=== PATIENT | female | born 1955 | race Caucasian/White ===

== ENCOUNTER → 2016-10-08 | Outpatient (CLI) | payer BC ==
[~2016-10-08] MED LIST: ATARAX25 MG PO; KEFLEX500 MG PO; LISINOPRIL-HCTZ 20-1; PREDNICOT20 MG PO
== END | disposition home or self-care (01) ==
LOC: MAMMO 09-24 09:00
DX: N63 Unspecified lump in breast (principal); R92.8 Other abnormal and inconclusive findings on diagnostic imaging of breast

== ENCOUNTER → 2017-09-22 | Outpatient (CLI) | payer BC | END | disposition home or self-care (01) | LOC: MAMMO 09-14 09:00 | DX: Z12.31 Encounter for screening mammogram for malignant neoplasm of breast (principal); N63.20 Unspecified lump in the left breast, unspecified quadrant; R92.8 Other abnormal and inconclusive findings on diagnostic imaging of breast ==

== ENCOUNTER 2020-07-02 16:14 | Inpatient (IN) | payer MEDICAID ==
[~2020-07-02] VITALS: Ht 160 cm; Wt 59.0 kg
[2020-07-02 17:19] LABS: BASO # 0.1 10*3/uL (0.0-0.1); BASO % 0.7 % (0.0-1.0); EOS # 0.2 10*3/uL (0.0-0.4); EOS % 1.6 % (1.0-4.0); HEMATOCRIT 42.8 % (37.0-47.0); LYMPH # 0.9 10*3/uL (1.3-4.4); LYMPH % 9.2 % (27.0-41.0); MEAN CELL VOLUME 97.1 fl (81.0-99.0); MEAN CORPUSCULAR HGB 31.5 pg (27.0-31.0); MEAN CORPUSCULAR HGB CONC 32.5 g/dl (33.0-37.0); MEAN PLATELET VOLUME 8.7 fl (9.6-12.3); MONO # 0.6 10*3/uL (0.1-1.0); MONO % 6.6 % (3.0-9.0); NEUT # 7.5 10*3/uL (2.3-7.9); NEUT % 81.1 % (47.0-73.0); PLATELET COUNT AUTOMATED 184 10*3/uL (130-400); RED BLOOD COUNT 4.41 10*6/uL (4.10-5.10); RED CELL DISTRI WIDTH 12.2 % (0-14.5); WHITE BLOOD COUNT 9.2 10*3/uL (4.8-10.8)
--- NOTE | 2020-07-02 17:21 | NUR ---
PATIENT MEDICATED FOR PAIN PER EMAR AND PODIATRY REQUEST. PIV INITIATED AND MEDICATED WITH 2 MG OF DILAUDID. CONT PULSE OX IN PLACE. SIDE RAILS UP X2..
[2020-07-02 17:33] LABS: ACT PARTIAL THROMBO TIME 26.5 SECONDS (20.0-32.1); INTERNATIONAL NORM RATIO 1.1 (2.0-3.5)
[2020-07-02 17:34] LABS: ALBUMIN 3.4 gm/dl (3.1-4.5); ALKALINE PHOSPHATASE 84 U/L (45-117); BUN 8 mg/dl (7-24); CHLORIDE 107 mmol/L (98-107); CREATININE 0.63 mg/dL (0.55-1.02); LIPASE 129 U/L (73-393); POTASSIUM 3.9 mmol/L (3.5-5.1); SGOT/AST 34 IU/L (3-35); SGPT/ALT 18 U/L (12-78); SODIUM 137 mmol/L (136-145); TOTAL PROTEIN 7.4 gm/dL (6.4-8.2)
--- NOTE | 2020-07-02 18:12 | NUR ---
PATIENT TO CT
--- NOTE | 2020-07-02 19:24 | NUR ---
8 MG ETOMIDATE GIVEN IV BY MARY ARREOLA
--- NOTE | 2020-07-02 19:25 | NUR ---
MEDICATION EFFECTIVE. FX REDUCED AT BEDSIDE. POX 99% ON 15 L NRB
--- NOTE | 2020-07-02 19:26 | NUR ---
FRACTURE STABLIZED WITH SPLINT
--- NOTE | 2020-07-02 19:27 | NUR ---
VITALS; POX 100% NRB 15L, HR 81 NSR, B/P 175/95, PATIENT STILL ADEQUATLY SEDATED AND RESTING IN BED. IV FLUIDS 125ML/HR
--- NOTE | 2020-07-02 19:30 | NUR ---
PATIENT EASILY AROUSED BY VOICE AT THIS TIME. ALERT AND ORIENTED TO X 3. GOOD SKIN RESPONSE WITH ADEQUATE COLOR CHANGE AFTER SPLINT APPLIED.
--- NOTE | 2020-07-02 19:45 | NUR ---
VITALS HR 82 B/P 163/76. IV FLUIDS RUNNING WITHOUT INCIDENT. PATIENT EASILY AROUSED BY VERBAL COMMU NICATION.
[2020-07-02 19:47] VITALS: BP 163/76
--- NOTE | 2020-07-02 19:51 | NUR ---
REPORT GIVEN TO CLARISSA ARREOLA.
[2020-07-02 19:55] VITALS: BP 143/81
[2020-07-02 20:24] VITALS: BP 147/78
--- NOTE | 2020-07-02 20:25 | NUR ---
PATIENT AWAKE AND RESTING IN BED. NO COMPLAINTS AT THIS TIME. ALERT AND ORIENTED TIMES 3
[2020-07-02 20:52] VITALS: BP 1565/73
[2020-07-02 21:20] VITALS: BP 152/81
--- NOTE | 2020-07-02 21:20 | NUR ---
LEFT FOOT NOT VISUALIZED TO ASSESS SKIN D/T SPLINT IN PLACE FROM THE ER.
--- NOTE | 2020-07-02 21:20 | NUR ---
PATIENT STATES SHE HAS NOT HAD THE FLU SHOT BUT DOES NOT WANT IT.
--- NOTE | 2020-07-02 21:20 | NUR ---
PATIENT UNSURE OF WHAT MEDS SHE TAKES SHE STATES "I KNOW I TAKE SOME BLOOD PRESSURE MEDS BUT I'M NOT SURE THE NAMES. THERES A COUPLE." WHEN LOOKING AT HER MED CLAIM HISTORY IT DOESN'T LOOK LIKE PATIENT HAS PICKED ANY MEDS UP RECENTLY. WHEN I ASKED PATIENT ABOUT THIS SHE STATES "WELL I HAVE BEEN USING THEM I WANT BECAUSE OF MY INSURANCE SO I HAVE BEEN SPACING THEM OUT AND MAKING THEM LAST." WILL CHECK WITH PHARMACY TOMORROW TO GET A MED LIST.
--- NOTE | 2020-07-02 21:20 | NUR ---
PATIENT STATES UNDERSTANDING OF NPO AFTER MIDNIGHT.
--- NOTE | 2020-07-02 21:20 | NUR ---
A 65, admitted to 5E, under the services of KIA Soni DO with a diagnosis of AA, LEFT FIBULAR FRACTURE, PILON FRACTURE OF LEFT TIBIA. FALL. Chief complaint is FALL, FRACTURE. Patient arrived [place] stretcher from [place]. Monitor applied. Initial assessment completed. Vital signs taken and recorded. KIA SONI DO notified of admission to the unit. Orders received. See assessment for past medical history, medications and allergies. Patient and/or family oriented to unit. [address] visitation policy reviewed. Clothing/patient valuable form completed. RAKAN HDZ
[2020-07-03] VITALS (9 sets, daily range): BP systolic 148–178; BP diastolic 63–84
--- NOTE | 2020-07-03 03:56 | NUR ---
MEDICATED WITH PRN MORPHINE FOR CO LEFT FOOT PAIN RATED AN 8/10. WILL ASSESS EFFECTIVENESS.
--- NOTE | 2020-07-03 04:56 | NUR ---
MORPHINR EFFECTIVE PER PATIENT.
[2020-07-03 06:45] LABS: BASO # 0.1 10*3/uL (0.0-0.1); BASO % 0.9 % (0.0-1.0); EOS # 0.2 10*3/uL (0.0-0.4); EOS % 3.7 % (1.0-4.0); HEMATOCRIT 38.1 % (37.0-47.0); LYMPH # 0.6 10*3/uL (1.3-4.4); LYMPH % 11.5 % (27.0-41.0); MEAN CELL VOLUME 97.2 fl (81.0-99.0); MEAN CORPUSCULAR HGB 32.1 pg (27.0-31.0); MEAN CORPUSCULAR HGB CONC 33.1 g/dl (33.0-37.0); MONO # 0.5 10*3/uL (0.1-1.0); MONO % 9.6 % (3.0-9.0); NEUT % 73.7 % (47.0-73.0); PLATELET COUNT AUTOMATED 169 10*3/uL (130-400); RED BLOOD COUNT 3.92 10*6/uL (4.10-5.10); RED CELL DISTRI WIDTH 12.5 % (0-14.5); WHITE BLOOD COUNT 5.4 10*3/uL (4.8-10.8)
[2020-07-03 06:52] LABS: INTERNATIONAL NORM RATIO 1.1 (2.0-3.5)
[2020-07-03 06:58] LABS: ALBUMIN 3.2 gm/dl (3.1-4.5); ALKALINE PHOSPHATASE 73 U/L (45-117); BUN 7 mg/dl (7-24); CHLORIDE 109 mmol/L (98-107); CHOLESTEROL 117 mg/dL (<200); CREATININE 0.53 mg/dL (0.55-1.02); HDL CHOLESTEROL 72 mg/dl (40-60); LDL CHOLESTEROL 31 mg/dL (9-159); POTASSIUM 3.3 mmol/L (3.5-5.1); SGOT/AST 23 IU/L (3-35); SGPT/ALT 14 U/L (12-78); SODIUM 140 mmol/L (136-145); TOTAL PROTEIN 6.7 gm/dL (6.4-8.2); TRIGLYCERIDES 69 mg/dl (<150); VLDL CHOLESTEROL 14 mg/dL (6-40)
--- NOTE | 2020-07-03 07:53 | NUR ---
PT GIVEN MORPHINE VIA IVP FOR C/O PAIN TO LEFT ANKLE. WILL MONITOR FOR EFFECTIVENESS. CALL LIGHT IN REACH.
--- NOTE | 2020-07-03 07:55 | NUR ---
PHYSICAL THERAPY Screen and PT eval received will follow thank you Lyly Coppola PT
--- NOTE | 2020-07-03 08:18 | NUR ---
PHYSICAL THERAPY PT dwight received pt admitted with L ankle fx s/p fall down steps ETOH abuse. Pt being followed by Joseph ROSE for possible ORIF today pending further test results. Will follow pending further orders from Dr. Sterling. Lyly Coppola PT
--- NOTE | 2020-07-03 08:24 | NUR ---
Occupational Therapy referral received and chart reviewed. Patient was hospitalized with left ankle fx s/p fall with ETOH abuse. Patient to be seen by orthopedic surgeon today. OT will continue with evaluation following weight bearing and further orders for activity tolerance. Thank you. Ashley Carlos OTR/l
--- NOTE | 2020-07-03 08:53 | NUR ---
PT STATES THAT MORPHINE IS EFFECTIVE.
--- NOTE | 2020-07-03 10:10 | NUR ---
NOTIFIED PHYSICIANS THAT PT IS NPO FOR SURGERY. PHYSICIAN STATES THAT PT CAN HAVE LIBRIUM WITH SIP OF WATER AND THAT VITAMIN D AND POTASSIUM IS TO BE GIVEN AFTER SURGERY.
--- NOTE | 2020-07-03 13:18 | NUR ---
Online Tutor in to talk to patient. Patient states lives at HOME with BROTHER. There are NO steps in the home. Physician: ERIK ALFONSO [facility]acy: [facility] Home health services: NONE Patient's level of ADLs: INDEPENDENT Patient has working utilities: YES DME: NONE Follow-up physician's appointment after d/c: WILL BE MADE BY HOSPITALIST NURSE DIRECTOR ON DISCHARGE Does patient want to access PORTAL?: NO Discharge plan PT LIVES AT HOME WITH BROTHER AND IS INDEPENDENT IN HER CARE. PT STATES SHE PLANS TO RETURN HOME WHEN MEDICALLY STABLE AND WILL HAVE NO NEEDS. PT IS SELF PAY SO UNABLE TO GET HOME HEALTH. PT IS FOR SURGERY TODAY. . WILL CONTINUE TO FOLLOW. STATES SHE WILL HAVE A RIDE HOME ON DISCHARGE. ALFREDO CASTILLO
--- NOTE | 2020-07-03 13:43 | NUR ---
PT GIVEN MORPHINE FOR C/O PAIN TO LEFT ANKLE. WILL MONITOR.
--- NOTE | 2020-07-03 14:25 | NUR ---
PT STATES THAT MORPHINE IS EFFECTIVE.
--- NOTE | 2020-07-03 14:30 | NUR ---
PT TAKEN TO SURGERY AT THIS TIME.
--- NOTE | 2020-07-03 16:12 | NUR ---
Nursing screen received and chart reviewed. Patient to have possible ORIF left ankle by Dr Sterling today. Patient could benefit from Occupational Therapy referral for ADLs, and d/c planning. Thank you. Ashley Carlos OTR/L
--- NOTE | 2020-07-03 18:01 | NUR ---
PT STILL IN SURGERY.
--- NOTE | 2020-07-03 19:00 | NUR ---
ARRIVED ON SHIFT AT THIS TIME. RECEIVED REPORT FROM ELBA RECIO. PATIENT STILL IN SURGERY AT THIS TIME.
--- NOTE | 2020-07-03 19:39 | NUR ---
24 HR chart check completed.
--- NOTE | 2020-07-03 21:56 | NUR ---
PATIENT BACK TO THE FLOOR FROM SURGERY AT THIS TIME.
[2020-07-04] VITALS (8 sets, daily range): BP systolic 102–176; BP diastolic 58–90
--- NOTE | 2020-07-04 01:00 | NUR ---
NOTIFIED MANUAL BP OF 176/90. ORDERS TO BE PUT IN.
[2020-07-04 06:44] LABS: BASO # 0.1 10*3/uL (0.0-0.1); BASO % 0.5 % (0.0-1.0); EOS # 0.1 10*3/uL (0.0-0.4); EOS % 0.8 % (1.0-4.0); HEMATOCRIT 38.6 % (37.0-47.0); LYMPH # 0.7 10*3/uL (1.3-4.4); LYMPH % 6.8 % (27.0-41.0); MEAN CORPUSCULAR HGB 32.3 pg (27.0-31.0); MEAN CORPUSCULAR HGB CONC 31.9 g/dl (33.0-37.0); MEAN PLATELET VOLUME 9.9 fl (9.6-12.3); MONO % 10.2 % (3.0-9.0); NEUT # 7.9 10*3/uL (2.3-7.9); NEUT % 81.4 % (47.0-73.0); PLATELET COUNT AUTOMATED 149 10*3/uL (130-400); RED BLOOD COUNT 3.81 10*6/uL (4.10-5.10); RED CELL DISTRI WIDTH 12.6 % (0-14.5); WHITE BLOOD COUNT 9.7 10*3/uL (4.8-10.8)
[2020-07-04 06:45] LABS: MEAN CELL VOLUME 101.3 fl (81.0-99.0)
[2020-07-04 06:51] LABS: BUN 6 mg/dl (7-24); CHLORIDE 107 mmol/L (98-107); CREATININE 0.49 mg/dL (0.55-1.02); POTASSIUM 3.8 mmol/L (3.5-5.1); SODIUM 139 mmol/L (136-145)
--- NOTE | 2020-07-04 08:15 | NUR ---
NOTIFIED DR AUGUST OF MANUAL BP OF 170/82.
--- NOTE | 2020-07-04 11:30 | NUR ---
PHYSICAL THERAPY Physical Therapy evaluation completed on 5th floor with full evaluation to follow. Recommend physical therapy per plan of care and SNF upon discharge. Pt states she wants to go home she has a FWW would also benefit from [facility] 24 hr care servies, transport home Thank you for this referral. Lyly Coppola PT
--- NOTE | 2020-07-04 12:42 | NUR ---
PT WILL NEED FOR PT OT ON DISCHARGE. PT IS SELF PAY. CAMMY FROM [facility] STATES THEY WILL SEE PT AT SELF PAY STATUS. WILL OBTAIN ORDER AND SEND REFERRAL.
--- NOTE | 2020-07-04 14:55 | NUR ---
PHYSICAL THERAPY PT SITTING IN RECLINER WITH AIDE PRESENT. PT IDENTIFIED BY NAME AND . PT REPORTED NO PAIN AT THIS TIME. PT PERFORMED STS FROM RECLINER TO FWW WITH Fox X2. AIDE MOVED RECLINER AND PLACES BSC BEHIND PT AND PT PERFORMED STS TO BSC WITH FOX X2 AND VC'S FOR PROPER TECHNIQUE AND SAFETY. PT PERFORMED STS FROM BCS WITH USE OF BUE AND Fox X1. AIDE MOVED BED CLOSE TO PT AND PT PERFORMED STAND PIVOT TRANSFER WITH MODaX1 TO EOB WITH USE OF BED RAIL FOR ASSIST. PT PERFORMED STS TO EOB WITH MINaX2 WITH VC'S FOR SAFETY. PT PERFORMED SIT TO SUPINE WITH MINaX1 WITH LLE. PT SUPINE IN BED WITH CALL LIGHT IN HAND AND AIDE STILL PRESENT. BED ALARM ON AND PT REPROTED NO OTHER NEEDS AT THIS TIME. PT SEEN 1:1 FOR 23 MINS DENISE GUEVARA PTA
--- NOTE | 2020-07-04 14:56 | NUR ---
Occupational therapy evaluation completed on the 5th floor with full eval to follow. Moderate complexity level. Precautions: NWB LLE, fall risk. Recommend SNF. Thank you for this referral, Zora Nascimento OTR/L
--- NOTE | 2020-07-04 15:05 | NUR ---
MEDS GIVEN TO PT AT THIS TIME. PT RESTING IN BED. NO S/S OF DISTRESS. NO COMPLAINTS ARE VOICED. PT DENIES PAIN. DRESSING TO LEFT ANKLE C/D/I. WILL MONITOR. CALL LIGHT IN REACH.
--- NOTE | 2020-07-04 18:00 | NUR ---
PT RESTING IN BED. PT DENIES PAIN. DRESSING TO L ANKLE C/D/I. RESPIRATIONS EASY AND UNLABORED. CALL LIGHT IN REACH.
[2020-07-04 19:41] LABS: BASO % 0.5 % (0.0-1.0); EOS # 0.2 10*3/uL (0.0-0.4); EOS % 2.7 % (1.0-4.0); HEMATOCRIT 35.5 % (37.0-47.0); LYMPH # 0.8 10*3/uL (1.3-4.4); LYMPH % 9.8 % (27.0-41.0); MEAN CELL VOLUME 101.7 fl (81.0-99.0); MEAN CORPUSCULAR HGB 32.7 pg (27.0-31.0); MEAN CORPUSCULAR HGB CONC 32.1 g/dl (33.0-37.0); MONO # 0.3 10*3/uL (0.1-1.0); MONO % 3.8 % (3.0-9.0); NEUT # 6.5 10*3/uL (2.3-7.9); NEUT % 82.7 % (47.0-73.0); PLATELET COUNT AUTOMATED 136 10*3/uL (130-400); RED BLOOD COUNT 3.49 10*6/uL (4.10-5.10); RED CELL DISTRI WIDTH 12.5 % (0-14.5); WHITE BLOOD COUNT 7.9 10*3/uL (4.8-10.8)
[2020-07-05] VITALS: BP 136/70
--- NOTE | 2020-07-05 04:08 | NUR ---
24 HR chart check completed.
[2020-07-05 07:00] LABS: BASO # 0.1 10*3/uL (0.0-0.1); BASO % 0.7 % (0.0-1.0); EOS # 0.4 10*3/uL (0.0-0.4); EOS % 5.1 % (1.0-4.0); HEMATOCRIT 36.5 % (37.0-47.0); LYMPH # 0.8 10*3/uL (1.3-4.4); LYMPH % 11.2 % (27.0-41.0); MEAN CELL VOLUME 98.9 fl (81.0-99.0); MEAN CORPUSCULAR HGB 32.2 pg (27.0-31.0); MEAN CORPUSCULAR HGB CONC 32.6 g/dl (33.0-37.0); MONO % 12.7 % (3.0-9.0); NEUT # 5.2 10*3/uL (2.3-7.9); NEUT % 69.9 % (47.0-73.0); PLATELET COUNT AUTOMATED 145 10*3/uL (130-400); RED BLOOD COUNT 3.69 10*6/uL (4.10-5.10); RED CELL DISTRI WIDTH 12.5 % (0-14.5); WHITE BLOOD COUNT 7.5 10*3/uL (4.8-10.8)
[2020-07-05 07:03] LABS: BUN 9 mg/dl (7-24); CHLORIDE 108 mmol/L (98-107); CREATININE 0.45 mg/dL (0.55-1.02); POTASSIUM 3.3 mmol/L (3.5-5.1); SODIUM 140 mmol/L (136-145)
[2020-07-05 12:00] VITALS: BP 153/75
--- NOTE | 2020-07-05 15:42 | NUR ---
DR CHANCE NOTIFIED THAT DR EAST STATES THAT HE IS OKAY WITH PATIENT GOING HOME WITH HOME HEALTH.
[2020-07-05 16:00] VITALS: BP 151/75
--- NOTE | 2020-07-05 16:00 | NUR ---
PT ENCOURAGED AND EDUCATED ON USE OF INCENTIVE SPIROMETER.
[2020-07-05] MEDS ORDERED: ASPIRIN ADULT L81 M2 PO (16:14)
[2020-07-05] MEDS ORDERED: LISINOPRIL20 MG PO (16:14)
[2020-07-05] MEDS ORDERED: VITAMIN D350 MC2 PO (16:14)
--- NOTE | 2020-07-05 17:13 | NUR ---
Discharge instructions reviewed with patient/family. Patient receptive and verbalizes understanding. Follow-up care arranged. Written instructions given to patient/family. HEMAL DE GUZMAN
--- NOTE | 2020-07-05 18:59 | NUR ---
SPOKE WITH PT EX MILEY WHO STATES THAT HE IS ABLE TO MANAGER DRILLING PT FOR DISCHARGE. UPON ENTERING PT ROOM AND NOTIFYING PT, PT STATES THAT SHE HAS ARRANGED A RIDE HOME WITH HER BROTHER AND SISTER, MIKY AND DIANNA. THIS NURSE SPOKE WITH MIKY AND HE STATES THAT HE WILL BE HERE TO MANAGER DRILLING PATIENT WITH HIS SISTER. MILEY CALLED AT THIS TIME AND NOTIFIED THAT PT HAS A RIDE HOME AND THAT HE NO LONGER NEEDS TO COME TO PICK HER UP. MILEY SAYS OKAY. PT NOTIFIED AND PATIENT ATTENDANTS NOTIFIED OF THIS.
--- NOTE | 2020-07-05 19:44 | NUR ---
MIKY IS HERE FOR PATIENT. PATIENT IN WHEELCHAIR WITH BELONGINGS AND DISCHARGE INSTRUCTIONS GIVEN TO HER FROM DAYLIGHT NURSE. PATIENT TAKEN TO ER EXIT AND PLACED IN FAMILY CAR AND DISCHARGED HOME WITH FAMILY.
--- NOTE | 2020-07-07 08:31 | NUR ---
PHYSICAL THERAPY CO-SIGN I approve of the Phyical Therapy notes written above. Lyly Coppola PT
--- NOTE | 2020-07-07 11:45 | NUR ---
REFERRAL FOR HOME OT AND PT FAXED TO [facility].
[2020-07-24] MEDS ORDERED: TAMSULOSIN HCL0.4 MG PO (14:03)
== END 2020-07-05 19:44 | disposition home health service (06) | DRG 313 ==
LOC: ED 16:14 → 5E 17:36 → EDHOLD 17:36 → 5E 20:06
PROVIDERS: Nurse Practitioner Family; Orthopaedic Surgery; Student in an Organized Health Care Education/Training Program; ADMIT Family Medicine; ATTEND Family Medicine
PROC: 0QSH35Z Reposition Left Tibia with External Fixation Device, Percutaneous Approach (ICD-10-PCS; principal; 2020-07-03)
PROC: 0HBLXZZ Excision of Left Lower Leg Skin, External Approach (ICD-10-PCS; principal; 2020-07-03)
DX: S82.872A Displaced pilon fracture of left tibia, initial encounter for closed fracture (principal); F10.239 Alcohol dependence with withdrawal, unspecified; E44.0 Moderate protein-calorie malnutrition; F17.210 Nicotine dependence, cigarettes, uncomplicated; I10 Essential (primary) hypertension; W18.30XA Fall on same level, unspecified, initial encounter; Y93.89 Activity, other specified; Y92.89 Other specified places as the place of occurrence of the external cause; Y99.8 Other external cause status; Z68.20 Body mass index [BMI] 20.0-20.9, adult

== ENCOUNTER → 2020-07-11 | Outpatient (CLI) | payer MEDICAID ==
[~2020-07-11] MED LIST changes: +ASPIRIN ADULT L81 M2 PO; +LISINOPRIL20 MG PO; +TAMSULOSIN HCL0.4 MG PO; +VITAMIN D350 MC2 PO
== END | disposition home or self-care (01) ==
LOC: ORTHO 00:43
PROVIDERS: ATTEND Orthopaedic Surgery
DX: S82.872A Displaced pilon fracture of left tibia, initial encounter for closed fracture (principal); X58.XXXA Exposure to other specified factors, initial encounter; Y93.89 Activity, other specified; Y92.89 Other specified places as the place of occurrence of the external cause; Y99.8 Other external cause status

== ENCOUNTER 2020-07-14 08:44 | Emergency (ER) | payer MEDICAID ==
[~2020-07-14] VITALS: Ht 160 cm; Wt 59.0 kg
[~2020-07-14 08:44] MED LIST changes: -TAMSULOSIN HCL0.4 MG PO
[2020-07-14 10:12] LABS: HEMATOCRIT 37.2 % (37.0-47.0); MEAN CELL VOLUME 94.2 fl (81.0-99.0); MEAN CORPUSCULAR HGB 31.6 pg (27.0-31.0); MEAN CORPUSCULAR HGB CONC 33.6 g/dl (33.0-37.0); PLATELET COUNT AUTOMATED 370 10*3/uL (130-400); RED BLOOD COUNT 3.95 10*6/uL (4.10-5.10); RED CELL DISTRI WIDTH 12.4 % (0-14.5); WHITE BLOOD COUNT 18.2 10*3/uL (4.8-10.8)
[2020-07-14 10:26] LABS: ALBUMIN 2.8 gm/dl (3.1-4.5); ALKALINE PHOSPHATASE 138 U/L (45-117); BUN 5 mg/dl (7-24); CHLORIDE 99 mmol/L (98-107); CREATININE 0.57 mg/dL (0.55-1.02); LIPASE 56 U/L (73-393); SGOT/AST 16 IU/L (3-35); SGPT/ALT 11 U/L (12-78); SODIUM 135 mmol/L (136-145)
[2020-07-14 10:28] LABS: TOTAL CELLS COUNTED 100 #CELLS
[2020-07-14 10:29] LABS: PLATELET SUFFICIENCY NORMAL (NORMAL)
[2020-07-14 13:10] LABS: CLARITY Cloudy (Clear); COLOR Yellow (Yellow)
[2020-07-14 13:11] LABS: BILIRUBIN Negative (Negative); BLOOD Trace-Lysed (Negative); GLUCOSE Negative (Negative); KETONE 1+ (Negative); LEUKO ESTERASE Negative (Negative); NITRITE Positive (Negative); SPECIFIC GRAVITY 1.015 (1.001-1.030); UROBILINOGEN 0.2 E.U./dl (0.0-1.0)
[2020-07-14 13:16] LABS: BACTERIA 4+
[2020-07-24] MEDS ORDERED: TAMSULOSIN HCL0.4 MG PO (14:03)
== END 2020-07-14 15:31 | disposition short-term general hospital (02) ==
LOC: ED 08:44
PROVIDERS: Physician Assistant
DX: N28.0 Ischemia and infarction of kidney (principal); N13.30 Unspecified hydronephrosis; N12 Tubulo-interstitial nephritis, not specified as acute or chronic; F17.200 Nicotine dependence, unspecified, uncomplicated

== ENCOUNTER → 2020-07-23 | Outpatient (CLI) | payer MEDICAID ==
[~2020-07-23] MED LIST changes: +TAMSULOSIN HCL0.4 MG PO
== END | disposition home or self-care (01) ==
LOC: RAD 11:14
PROVIDERS: ATTEND Orthopaedic Surgery
DX: S82.872D Displaced pilon fracture of left tibia, subsequent encounter for closed fracture with routine healing (principal); S82.402D Unspecified fracture of shaft of left fibula, subsequent encounter for closed fracture with routine healing; X58.XXXD Exposure to other specified factors, subsequent encounter

== ENCOUNTER → 2020-07-25 | Day surgery (SDC) | payer MEDICAID ==
[2020-07-24 13:51] VITALS: BP 151/65
[2020-07-24 14:34] LABS: BASO # 0.1 10*3/uL (0.0-0.1); BASO % 0.9 % (0.0-1.0); EOS # 0.1 10*3/uL (0.0-0.4); EOS % 1.7 % (1.0-4.0); HEMATOCRIT 36.4 % (37.0-47.0); LYMPH # 1.4 10*3/uL (1.3-4.4); LYMPH % 16.7 % (27.0-41.0); MEAN CELL VOLUME 95.3 fl (81.0-99.0); MEAN CORPUSCULAR HGB 31.2 pg (27.0-31.0); MEAN CORPUSCULAR HGB CONC 32.7 g/dl (33.0-37.0); MEAN PLATELET VOLUME 8.2 fl (9.6-12.3); MONO # 0.6 10*3/uL (0.1-1.0); MONO % 6.9 % (3.0-9.0); NEUT % 73.4 % (47.0-73.0); PLATELET COUNT AUTOMATED 374 10*3/uL (130-400); RED BLOOD COUNT 3.82 10*6/uL (4.10-5.10); RED CELL DISTRI WIDTH 13.4 % (0-14.5); WHITE BLOOD COUNT 8.1 10*3/uL (4.8-10.8)
[2020-07-24 14:44] LABS: ACT PARTIAL THROMBO TIME 27.6 SECONDS (20.0-32.1); INTERNATIONAL NORM RATIO 1.2 (2.0-3.5)
[2020-07-24 15:00] LABS: BUN 3 mg/dl (7-24); CHLORIDE 105 mmol/L (98-107); CREATININE 0.59 mg/dL (0.55-1.02); POTASSIUM 2.9 mmol/L (3.5-5.1); SODIUM 140 mmol/L (136-145)
[~2020-07-25] VITALS: Ht 160 cm; Wt 59.0 kg
[2020-07-25 10:08] VITALS: BP 138/84
[2020-07-25 13:48] VITALS: BP 177/86
[2020-07-25 14:05] VITALS: BP 175/72
[2020-07-25 14:20] VITALS: BP 175/72
[2020-07-25 14:49] VITALS: BP 170/69
== END ==
LOC: SDC 07-24 10:15
PROVIDERS: ATTEND Orthopaedic Surgery
DX: S82.872A Displaced pilon fracture of left tibia, initial encounter for closed fracture (principal); I10 Essential (primary) hypertension; F17.210 Nicotine dependence, cigarettes, uncomplicated; Z79.82 Long term (current) use of aspirin; Z98.84 Bariatric surgery status; Z79.01 Long term (current) use of anticoagulants; Z79.899 Other long term (current) drug therapy; X58.XXXA Exposure to other specified factors, initial encounter; Y93.89 Activity, other specified; Y92.89 Other specified places as the place of occurrence of the external cause; Y99.8 Other external cause status

== ENCOUNTER → 2020-08-19 | Outpatient (CLI) | payer OTHER | END | disposition home or self-care (01) | LOC: ORTHO 14:15 | PROVIDERS: ATTEND Orthopaedic Surgery | DX: S82.872D Displaced pilon fracture of left tibia, subsequent encounter for closed fracture with routine healing (principal); S82.452D Displaced comminuted fracture of shaft of left fibula, subsequent encounter for closed fracture with routine healing; X58.XXXD Exposure to other specified factors, subsequent encounter ==

== ENCOUNTER → 2020-09-02 | Outpatient (CLI) | payer OTHER | END | disposition home or self-care (01) | LOC: RAD 13:23 | PROVIDERS: ATTEND Orthopaedic Surgery | DX: S82.62XD Displaced fracture of lateral malleolus of left fibula, subsequent encounter for closed fracture with routine healing (principal); X58.XXXD Exposure to other specified factors, subsequent encounter ==

== ENCOUNTER → 2020-09-10 | Outpatient (CLI) | payer OTHER | END | disposition home or self-care (01) | LOC: ORTHO 00:26 | PROVIDERS: ATTEND Orthopaedic Surgery | DX: S82.872D Displaced pilon fracture of left tibia, subsequent encounter for closed fracture with routine healing (principal); X58.XXXD Exposure to other specified factors, subsequent encounter ==

== ENCOUNTER → 2020-09-16 | Outpatient (CLI) | payer OTHER | END | disposition home or self-care (01) | LOC: ORTHO 09-15 11:22 | PROVIDERS: ATTEND Orthopaedic Surgery | DX: S82.872D Displaced pilon fracture of left tibia, subsequent encounter for closed fracture with routine healing (principal); X58.XXXD Exposure to other specified factors, subsequent encounter ==

== ENCOUNTER → 2020-10-02 | Outpatient (CLI) | payer OTHER | END | disposition home or self-care (01) | LOC: RAD 00:14 | PROVIDERS: ATTEND Orthopaedic Surgery | DX: S82.62XD Displaced fracture of lateral malleolus of left fibula, subsequent encounter for closed fracture with routine healing (principal); X58.XXXD Exposure to other specified factors, subsequent encounter ==

== ENCOUNTER → 2021-01-16 | Outpatient (CLI) | payer MEDICARE, MEDICAID | END | disposition home or self-care (01) | LOC: US 11:59 | PROVIDERS: ATTEND Urology | DX: N13.39 Other hydronephrosis (principal); N28.89 Other specified disorders of kidney and ureter ==

== ENCOUNTER 2021-02-02 19:19 | Emergency (ER) | payer MEDICARE, MEDICAID ==
[~2021-02-02] VITALS: Ht 160 cm; Wt 55.3 kg
== END 2021-02-02 21:00 | disposition home or self-care (01) ==
LOC: ED 19:19
DX: S01.91XA Laceration without foreign body of unspecified part of head, initial encounter (principal); Z79.899 Other long term (current) drug therapy; Z79.82 Long term (current) use of aspirin; W19.XXXA Unspecified fall, initial encounter; Y93.89 Activity, other specified; Y92.89 Other specified places as the place of occurrence of the external cause; Y99.8 Other external cause status

== ENCOUNTER → 2023-03-25 | Outpatient (CLI) | payer MEDICARE, MEDICAID ==
[~2023-03-25] MED LIST changes: +AMLODIPINE BESY10 MG PO; +CALCIUM CARBON200 MG PO; +HYDROCODONE-AC1 EAC1 PO; +IRBESARTAN150 MG PO; +LOSARTAN POTASS50 M1 PO; +NATURE'S BLEND F1 MG PO; +TRELEGY ELLIPT1 EACH INH; +VITAMIN B-1100 M1 PO; +VITAMIN D350 MCG PO
== END | disposition home or self-care (01) ==
LOC: ORTHO 01:20
PROVIDERS: ATTEND Orthopaedic Surgery
DX: S72.141D Displaced intertrochanteric fracture of right femur, subsequent encounter for closed fracture with routine healing (principal); X58.XXXD Exposure to other specified factors, subsequent encounter

== ENCOUNTER → 2023-07-11 | Outpatient (CLI) | payer MEDICARE, MEDICAID | END | disposition home or self-care (01) | LOC: ORTHO 00:48 | PROVIDERS: ATTEND Orthopaedic Surgery | DX: Z47.1 Aftercare following joint replacement surgery (principal); Z96.641 Presence of right artificial hip joint ==

== ENCOUNTER → 2023-07-29 | Outpatient (CLI) | payer MEDICARE, MEDICAID | END | disposition home or self-care (01) | LOC: RAD 09:57 | PROVIDERS: ATTEND Orthopaedic Surgery | DX: S72.141D Displaced intertrochanteric fracture of right femur, subsequent encounter for closed fracture with routine healing (principal); M85.831 Other specified disorders of bone density and structure, right forearm; M81.0 Age-related osteoporosis without current pathological fracture; X58.XXXD Exposure to other specified factors, subsequent encounter ==

== ENCOUNTER → 2024-01-12 | Outpatient (CLI) | payer MEDICARE, MEDICAID | END | disposition home or self-care (01) | LOC: CARD 01:04 | PROVIDERS: ATTEND Physician Assistant | DX: R01.1 Cardiac murmur, unspecified (principal) ==